=== PATIENT | female | born 1975 | race Two or more races ===

== ENCOUNTER 2025-01-03 06:37 | Inpatient (IN) | payer MEDICAID ==
[~2025-01-03] VITALS: Ht 165.1 cm; Wt 85.0 kg
[2025-01-03 07:21] LABS: Urine Bacteria None Seen /hpf (None Seen)
[2025-01-03 07:35] LABS: Urine Blood Negative /uL (Negative); Urine Clarity Clear (Clear); Urine Color Light-Yellow (Yellow); Urine Mucus FEW (None Seen); Urine Protein, UAD Negative (Negative); Urine Specific Gravity 1.021 (1.001-1.035); Urine Squamous Epithelial Cell FEW /hpf (<5); Urine Urobilinogen Normal (Negative); Urine WBC 2 /HPF (0-5)
[2025-01-03] MEDS: SODIUM CHLORIDE 0.9% 1,000 ML IV ONE (07:55)
[2025-01-03] MEDS: ONDANSETRON HCL 4 MG/2 ML VIAL IV ONE (08:00)
[2025-01-03 08:01] VITALS: PULSE 84; RESP 16; O2SAT 99
[2025-01-03] MEDS: MORPHINE SULFATE 4 MG/ML SYR/VIAL IV ONE (08:01)
[2025-01-03 08:16] LABS: Basophils # (auto) 0.1 10 ^3/uL (0-0.2); Basophils % (auto) 0.7 % (0.0-2.0); Eosinophils # (auto) 0.2 10 ^3/uL (0-0.8); Eosinophils % (auto) 2.8 % (0.0-7.0); Lymphocytes # (auto) 1.7 10 ^3/uL (0.4-5.4); Lymphocytes % (auto) 19.9 % (10.0-50.0); Mean Corpuscular Hemoglobin 25.1 pg (28.0-32.0); Mean Corpuscular Hgb Conc. 32.4 g/dL (32.0-36.0); Mean Corpuscular Volume 77.3 fL (80.0-100.0); Monocytes # (auto) 0.6 10 ^3/uL (0-1.3); Neutrophils # (auto) 5.9 10 ^3/uL (1.6-8.6); Neutrophils % (auto) 69.6 % (37.0-80.0); Platelet Count (auto) 247 10^3/uL (140-450); Red Blood Cells 4.79 10^6/uL (4.0-5.20); Red Cell Distribution Width 16.6 % (11.8-14.3); White Blood Cell 8.5 10^3/uL (4.4-10.8)
[2025-01-03 08:19] LABS: Chloride 106 mmol/L (98-107); Sodium 138 mmol/L (136-145)
[2025-01-03 08:20] LABS: Anion Gap 7 (5-15); Calcium 8.8 mg/dL (8.7-10.4); Carbon Dioxide 25 mmol/L (20-31)
[2025-01-03 08:25] LABS: Blood Urea Nitrogen 9 mg/dL (9-23); Glucose 105 mg/dL (74-106)
[2025-01-03] MEDS: IOHEXOL 300 MG/ML 100ML BOTTLE IJ ONE (08:49)
--- NOTE | 2025-01-03 10:04 | DVH ---
Exam: CT CT AB PEL WITH IV CON ONLY History: llq pain TECHNIQUE: A digital account financial manager image was obtained. During the uneventful, intravenous administration of c ontrast material, multislice data acquisition was obtained through the abdomen and pelvis. The data s et was subsequently reconstructed into axial images. Images were reviewed on a work station using a c ombination of axial and multiplanar using a variety of window levels and settings. 100 cc of Omnipaqu e 300 contrast was injected intravenously. All CT scans at this medical facility are performed using dose modulation techniques as appropriate t o a performed exam including the following:Automated exposure control was utilized; adjustment of the MA and/or KV according to patient size; and use of iterative reconstruction technique. Radiation Dose Information: CT Dose: CTDI volume is 14.37 mGy. Dose-length product is 829.66 mGy*cm Comparison: None FINDINGS: [Findings] Gallbladder surgically absent. Theliver, pancreas, kidneys, adrenal glands, and spleen appear within normal limits. There is no evidence of abdominal lymphadenopathy. There is no free fluid or free air. The stomach grossly appears unremarkable. The small and large bowel loops demonstrate normal caliber. The abdominal aorta and IVC appear within normal limits. The bladder is decompressed limiting evaluation. The uterus appears bulky and heterogeneous likely r elated to fibroid changes. There is a 3.7 cm cystic structure in the left pelvis likely an ovarian cy st. There is no evidence of a pelvic mass or lymphadenopathy. There is no free fluid collection. Lung bases are clear. There is no acute osseous abnormality. IMPRESSION: 1. There is no acute process in the abdomen and pelvis.. 2. The uterus appears bulky and heterogeneous likely related fibroid changes. 3. 3.7 cm cystic structure in the left pelvis likely an ovarian cyst. HS:Y
--- NOTE | 2025-01-03 12:17 | ED.PDOC ---
GI ASSESSMENT HPI Comments 49 year old female presents to the ED with a chief complaint of LLQ pain onset last night. Patient states she began experiencing LLQ pain last night, rates pain 10/10 and pain worsens with walking. Patient states she has been experiencing LLQ pain intermittently for the past few months, does not have PCP. Denies PMHx as well as nausea, vomiting, diarrhea, headache, chest pain, shortness of breath. No other symptoms or modifying factors present at this time. Chief Complaint: Abdominal Pain Time Seen by MD: 11:50 Reviewed Notes: Medications, Allergies Allergies: Coded Allergies: NO KNOWN ALLERGIES (Unverified , 01/03/25) Information Source: Patient Mode of Arrival: Ambulatory Timing: Days Duration: Since onset Prehospital treatment: None Quality: Aching Vomitus: None Severity: Moderate Recent: None Recent Hx of: None Pain Location: LLQ Modifying Factors: Nothing Associated sign and symptoms: Abdominal Pain Past Medical History PAST MEDICAL HISTORY: Denies Surgical History: Tubal Ligation CLIENT ADVISOR History: No Pertinent CLIENT ADVISOR History Family History Family History: Reviewed,noncontributory to illness, No family hx of Cancer, No family hx of DM, No family hx of Heart ja, No family hx of HTN, No family hx ofKidney ja, No family hx of Liver ja, No family hx of Lung ja, No family hx of Stroke Social History Smoker: Non-Smoker Alcohol: Denies ETOH Use Drugs: Denies Drug Use Lives In: Home Constitutional: denies: chills, diaphoresis, fatigue, fever, malaise, sweats, weakness, others EENTM: denies: blurred vision, double vision, ear bleeding, ear discharge, ear drainage, ear pain, ear ringing, eye pain, eye redness, hearing loss, mouth pain, mouth swelling, nasal discharge, nose bleeding, nose congestion, nose pain, photophobia, tearing, throat pain, throat swelling, voice changes, others Respiratory: denies: cough, hemoptysis, orthopnea, SOB at rest, shortness of breath, SOB with excertion, stridor, wheezing, others Cardiovascular: denies: chest pain, dizzy spells, diaphoresis, Dyspnea on exertion, edema, irregular heart beat, left arm pain, lightheadedness, palpitations, PND, syncope, others Gastrointestinal: reports: abdominal pain; denies: abdomen distended, blood streaked bowels, constipated, diarrhea, dysphagia, difficulty swallowing, hematemesis, melena, nausea, poor appetite, poor fluid intake, rectal bleeding, rectal pain, vomiting, others Genitourinary: denies: abnormal vagina bleeding, burning, dyspareunia, dysuria, flank pain, frequency, hematuria, incontinence, pain, , vagina discharge, urgency, others Neurological: denies: dizziness, fainting, headache, left sided numbness, left sided weakness, numbness, paresthesia, pre-existing deficit, right sided numbness, right sided weakness, seizure, speech problems, tingling, tremors, weakness, others Musculoskeletal: denies: back pain, gout, joint pain, joint swelling, muscle pain, muscle stiffness, neck pain, others Integumetry: denies: bruises, change in color, change in hair/nails, dryness, laceration, lesions, lumps, rash, wounds, others Allergic/Immunocompromised: denies: Difficulty Healing, Frequent Infections, Hives, Itching, others Hematologic/Lymphatic: denies: anemia, blood clots, easy bleeding, easy bruising, swollen glands, others Endocrine: denies: excessive hunger, excessive sweating, excessive thirst, excessive urination, flushing, intolerance to cold, intolerance to heat, unexplained weight gain, unexplained weight loss, others Psychiatric: denies: anxiety, bipolar disorder, depression, hopeless, panic disorder, schizophrenia, sleepless, suicidal, others All Other Systems: Reviewed and Negative Physical Exam General Appearance: Moderate Distress HEENT: Normal ENT Inspection, Pharynx Normal, TMs Normal Neck: Full Range of Motion, Non-Tender, Normal, Normal Inspection Respiratory: Chest Non-Tender, Lungs Clear, No Accessory Muscle Use, No Respiratory Distress, Normal Breath Sounds Cardiovascular: No Edema, No JVD, No Murmur, No Gallop, Normal Peripheral Pulses, Regular Rate/Rhythm Breast Exam: Deferred Gastrointestinal: Soft Genitalia: Deferred Pelvic: Deferred Rectal: Deferred Extremities: No calf tenderness, Normal capillary refill, Normal inspection, Normal range of motion, Non-tender, No pedal edema Musculoskeletal : Apperance: Normal Neurologic: Alert, oracle application consultant II-XII nml as Tested, No Motor Deficits, Normal Affect, Normal Mood, No Sensory Deficits Cerebellar Function: Normal Reflexes: Normal Skin: Dry, Normal Color, Warm Peripheral Pulses: 3+ Radial (R), 3+ Radial (L) Lymphatic: No Adenopathy Was a procedure done? Was a procedure done?: No GI differential Dx Differential Diagnosis: Constipation, Diverticular disease, Esophagitis, Gastritis/PUD, Gastroenteritis X-Ray, Labs, Meds, VS Vital Signs Date Time Temp Pulse Resp B/P (MAP) Pulse Ox O2 Delivery O2 Flow Rate FiO2 01/03/25 13:31 97.9 75 16 153/95 (114) 97 97.9 01/03/25 09:17 81 16 152/90 01/03/25 08:01 84 16 175/103 01/03/25 08:01 84 16 99 Room Air* 0 21 01/03/25 07:41 97.7 86 16 175/103 (127) 99 97.7 01/03/25 07:41 86 16 99 Room Air 01/03/25 06:56 98.7 89 16 177/101 (126) 100 Lab Test 01/03/25 07:33 01/03/25 06:50 Range/Units White Blood Count 8.5 4.4-10.8 10^3/uL Red Blood Count 4.79 4.0-5.20 10^6/uL Hemoglobin 12.0 L 12.2-16.2 g/dL Hematocrit 37.0 36.0-46.0 % Mean Corpuscular Volume 77.3 L 80.0-100.0 fL Mean Corpuscular Hemoglobin 25.1 L 28.0-32.0 pg Mean Corpuscular Hemoglobin Concent 32.4 32.0-36.0 g/dL Red Cell Distribution Width 16.6 H 11.8-14.3 % Platelet Count 247 140-450 10^3/uL Mean Platelet Volume 9.0 6.9-10.8 fL Neutrophils (%) (Auto) 69.6 37.0-80.0 % Lymphocytes (%) (Auto) 19.9 10.0-50.0 % Monocytes (%) (Auto) 7.0 0.0-12.0 % Eosinophils (%) (Auto) 2.8 0.0-7.0 % Basophils (%) (Auto) 0.7 0.0-2.0 % Neutrophils # (Auto) 5.9 1.6-8.6 10 ^3/uL Lymphocytes # (Auto) 1.7 0.4-5.4 10 ^3/uL Monocytes # (Auto) 0.6 0-1.3 10 ^3/uL Eosinophils # (Auto) 0.2 0-0.8 10 ^3/uL Basophils # (Auto) 0.1 0-0.2 10 ^3/uL Nucleated Red Blood Cells 0.0 % Sodium Level 138 136-145 mmol/L Potassium Level 4.0 3.5-5.1 mmol/L Chloride Level 106 98-107 mmol/L Carbon Dioxide Level 25 20-31 mmol/L Anion Gap 7 5-15 Blood Urea Nitrogen 9 9-23 mg/dL Creatinine 0.69 0.550-1.02 mg/dL Glomerular Filtration Rate Calc 108 >90 mL/min BUN/Creatinine Ratio 13.0 10.0-20.0 Serum Glucose 105 74-106 mg/dL Calcium Level 8.8 8.7-10.4 mg/dL Urine Color Light-yellow Yellow Urine Clarity Clear Clear Urine pH 6.0 5.0-9.0 Urine Specific [place] 1.021 1.001-1.035 Urine Protein Negative Negative Urine Ketones Negative Negative Urine Blood Negative Negative /uL Urine Nitrite Negative Negative Urine Bilirubin Negative Negative Urine Urobilinogen Normal Negative mg/dL Urine Leukocyte Esterase Negative Negative /uL Urine RBC 1 0 - 4 /hpf Urine Microscopic WBC 2 0-5 /HPF Urine Squamous Epithelial Cells Few <5 /hpf Urine Bacteria None seen None Seen /hpf Urine Mucus Few None Seen Urine Glucose Normal Normal mg/dL Current Medications Medications (Trade) Dose Ordered Sig/Yary Route Start Time Stop Time Status Last Admin Sodium Chloride 1,000 ml @ 1,000 mls/hr Q1H ONCE IV 01/03/25 07:00 01/03/25 07:59 DC 01/03/25 07:55 Ondansetron HCl (Zofran) 4 mg ONCE ONCE IV 01/03/25 07:00 01/03/25 07:01 DC 01/03/25 08:00 Morphine Sulfate 4 mg ONCE ONCE IV 01/03/25 07:00 01/03/25 07:01 DC 01/03/25 08:[address] [address] Ph: [phone] DIAGNOSTIC IMAGING Diagnostic Imaging Report : [id number] Signed PATIENT: ROBBIE CONDE ACCT: [id number] UNIT: [id number] : 1975 LOC: ER ROOM / BED: / AGE / SEX: 49 / F ADM STATUS: REG ER SERVICE 0658 ORDERING PHYSICIAN: THA CHRISTIANSON MD PROCEDURE(s): ABPLIV - CT AB PEL WITH IV CON ONLY REASON: llq pain ORDER NUMBER(s): [id number], ACCESSION NUMBER(s): [id number] Exam: CT CT AB PEL WITH IV CON ONLY History: llq pain TECHNIQUE: A digital gas station supervisor image was obtained. During the uneventful, intraven ous administration of contrast material, multislice data acquisition was obtained through the abdomen and pelvis. The data set was subsequently reconstructed into axial images. Images were reviewed on a work station using a combination of axial and multiplanar using a variety of window levels and settings. 100 cc of Omnipaque 300 contrast was injected intravenously. All CT scans at this medical facility are performed using dose modulation techniques as appropriate to a performed exam including the following:Automated exposure control was utilized; adjustment of the MA and/or KV according to patient size; and use of iterative reconstruction technique. Radiation Dose Information: CT Dose: CTDI volume is 14.37 mGy. Dose-length product is 829.66 mGy*cm Comparison: None FINDINGS: [Findings] Gallbladder surgically absent. Theliver, pancreas, kidneys, adrenal glands, and spleen appear within normal limits. There is no evidence of abdominal lymphadenopathy. There is no free fluid or free air. The stomach grossly appears unremarkable. The small and large bowel loops demonstrate normal caliber. The abdominal aorta and IVC appear within normal limits. The bladder is decompressed limiting evaluation. The uterus appears bulky and heterogeneous likely related to fibroid changes. There is a 3.7 cm cystic structure in the left pelvis likely an ovarian cyst. There is no evidence of a pelvic mass or lymphadenopathy. There is no free fluid collection. Lung bases are clear. There is no acute osseous abnormality. IMPRESSION: 1. There is no acute process in the abdomen and pelvis.. 2. The uterus appears bulky and heterogeneous likely related fibroid changes. 3. 3.7 cm cystic structure in the left pelvis likely an ovarian cyst. HS:Y ATED BY: ALDIAR CURRY MD DICTATED DATE/TIME: 01/03/25 1002 SIGNED BY: ALDAIR CURRY MD SIGNED DATE/TIME: 01/03/25 1002 CC: Patient alert. Complaining of abdominal pain. Vitals stable. Answering all questions. She has been having these symptoms for many months. CT of the abdomen reviewed does not show any acute changes. Possibly ovarian cyst. Continues to have abdominal pain. Establish intravenous access. Was given fluids pain Was given pain medication. Explained to the patient. Continue monitoring. Time of 1ST Reevaluation: 12:20 Reevaluation 1ST: Unchanged Patient Education/Counseling: Diagnosis, Treatment, Prognosis Family Education/Counseling: No Family Present Additional Information The following tests were ordered, and results were reviewed by me: CBC, BMP, UA, CT AB PEL WITH IV CON I reviewed and agreed with the following test results read by other providers: CT AB PEL WITH IV CON I discussed treatment and results with medical personnel and patient Departure 1 Departure Time of Disposition: 16:56 Impression: Primary Impression: Nonspecific abdominal pain Additional Impression: Ovarian cyst Qualified Codes: N83.209 - Unspecified ovarian cyst, unspecified side Disposition: ADMITTED INPATIENT Admit to: Med Surg Condition: Guarded Critical Care Note Critical Care Time?: No Stability Stability form required: No Heart Score Heart Score: Heart Score Response (Comments) Value History N/A 0 EKG N/A 0 Age N/A 0 Risk Factors N/A 0 Troponin N/A 0 Total 0 I personally scribed for SHOLA YOO MD ([email or web address]) on 01/03/25 at 12:17. Electronically submitted by Amanda Gross ([email or web address]). I personally scribed for SHOLA YOO MD ([email or web address]) on 01/03/25 at 12:20. Electronically submitted by Amanda Gross ([email or web address]). I personally scribed for SHOLA YOO MD ([email or web address]) on 01/03/25 at 13:09. Electronically submitted by Amanda Gross ([email or web address]). SHOLA YOO MD Jan 03, 2025 12:17
[2025-01-03] MEDS ORDERED: HYDROcodone-ACET 5/325MG TAB PO PRN (14:30)
[2025-01-03] MEDS ORDERED: DOCUSATE SOD 100 MG CAP PO PRN (14:30)
[2025-01-03] MEDS ORDERED: ONDANSETRON HCL 4 MG/2 ML VIAL IV PRN (14:30)
[2025-01-03] MEDS ORDERED: ACETAMINOPHEN 325 MG TAB PO PRN (14:30)
--- NOTE | 2025-01-03 15:59 | DVHHP2 ---
History of Present Illness Reason for Visit: Acute abdominal pain History of Present Illness The patient is a 49-year-old female who denies past medical history presented to [facility] ED with complaint of left lower quadrant abdominal pain. Patient reports symptoms progressively get worse with nausea, rating pain 10/10 numeric scale, intermittent abdominal pain for the past few months, getting worse today that prompted this visit. Patient was seen and evaluated in the ED, laboratory data shows WBC 8.5, platelets 247, sodium 138, potassium 4.0, BUN nine, creatinine 0.69, GFR 108, glucose 105. Abdomen/pelvis CT revealing 3.7 cm cystic structure in the left pelvis likely an ovarian cysts, no acute process in the abdomen or pelvis. Please see medication orders section in the computer. On my assessment, patient denied chest pain, no headache, no dizziness, no shortness a breath, no nausea, no vomiting, no fever, no chills. No other mo difying factor or other associated signs and symptoms noted. The patient was admitted to the hospital for further evaluation and medical management. Past Medical History Denies past medical history Past Surgical History Tubal Ligation Family History Reviewed, noncontributory to the management of this case. Past Social History The patient lives at home, denies smoking, alcohol or illicit drugs abuse. Review of Systems Constitutional: No: Fever, Chills, Sweats, Weakness, Malaise, Other Eyes: No: Pain, Vision change, Conjunctivae inflammation, Eyelid inflammation, Other, Redness ENT: No: Ear pain, Ear discharge, Nose pain, Nose discharge, Nose congestion, Mouth pain, Mouth swelling, Throat pain, Throat swelling, Other Respiratory: No: Cough, Dry, Shortness of breath, SOB with excertion, Wheezing, Hemoptysis, Pleuritic Pain, Sputum, Wheezing, Other Cardiovascular: No: Chest Pain, Palpitations, Orthopnea, Paroxysmal Noc. D yspnea, Edema, Lt Headedness, Other Gastrointestinal: Nausea, Abdominal Pain; No: Vomiting, Diarrhea, Constipation, Melena, Hematochezia, Other Genitourinary: No Dysuria, No Frequency, No Incontinence, No Hematuria, No Retention, No Other Musculoskeletal: No: other, neck pain, shoulder pain, arm pain, back pain, hand pain, leg pain, foot pain Skin: No: Rash, Lesions, Jaundice, Bruising, Other Neurological: No: Weakness, Numbness, Incoordination, Change in speech, Confusion, Seizures, Other Allergies: Coded Allergies: NO KNOWN ALLERGIES (Unverified , 01/03/25) Medications Current Medications Medications Dose Ordered Sig/Yary Route Start Time Stop Time Status Last Admin Dose Admin Sodium Chloride 1,000 ml @ 60 mls/hr [id number] IV 01/03/25 14:30 Acetaminophen/ Hydrocodone Bitart 1 tab Q4HP PRN PO 01/03/25 14:30 Ondansetron HCl 4 mg Q4HP PRN IV 01/03/25 14:30 Docusate Sodium 100 mg BIDPRN PRN PO 01/03/25 14:30 Acetaminophen 650 mg Q6HP PRN PO 01/03/25 14:30 Morphine Sulfate 2 mg Q4HPRN PRN IV 01/03/25 14:30 Pantoprazole Sodium 40 mg DAILY IV 01/04/25 10:00 Exam Vital Signs Vital Signs Date Time Temp Pulse Resp B/P (MAP) Pulse Ox O2 Delivery O2 Flow Rate FiO2 01/03/25 13:31 97.9 75 16 153/95 (114) 97 97.9 01/03/25 08:01 Room Air* 0 21 General Appearance: Alert, Oriented X3, Cooperative, No acute distress HEENT: Atraumatic, PERRLA, EOMI, Mucous membr. moist/pink Respiratory: Clear to auscultation, Normal air movement Cardiovascular: Regular rate, Normal S1, Normal S2, No murmurs Abdominal: Normal bowel sounds, Soft, No hepatospenomegaly, No masses, Other (Reports tenderness) Extremities: No clubbing, No cyanosis, No edema, Normal pulses, No tenderness/swelling Skin: No rashes, No breakdown, No significant lesion Neuro: Normal gait, Normal speech, Strength at 5/5 X4 ext, Normal tone, Sensation intact, Cranial nerves 3-12 NL, Reflexes 2+ Psych/Mental Status: Mental status NL, Mood NL Labs/Xrays Labs Test 01/03/25 07:33 01/03/25 06:50 Range/Units White Blood Count 8.5 4.4-10.8 10^3/uL Red Blood Count 4.79 4.0-5.20 10^6/uL Hemoglobin 12.0 L 12.2-16.2 g/dL Hematocrit 37.0 36.0-46.0 % Mean Corpuscular Volume 77.3 L 80.0-100.0 fL Mean Corpuscular Hemoglobin 25.1 L 28.0-32.0 pg Mean Corpuscular Hemoglobin Concent 32.4 32.0-36.0 g/dL Red Cell Distribution Width 16.6 H 11.8-14.3 % Platelet Count 247 140-450 10^3/uL Mean Platelet Volume 9.0 6.9-10.8 fL Neutrophils (%) (Auto) 69.6 37.0-80.0 % Lymphocytes (%) (Auto) 19.9 10.0-50.0 % Monocytes (%) (Auto) 7.0 0.0-12.0 % Eosinophils (%) (Auto) 2.8 0.0-7.0 % Basophils (%) (Auto) 0.7 0.0-2.0 % Neutrophils # (Auto) 5.9 1.6-8.6 10 ^3/uL Lymphocytes # (Auto) 1.7 0.4-5.4 10 ^3/uL Monocytes # (Auto) 0.6 0-1.3 10 ^3/uL Eosinophils # (Auto) 0.2 0-0.8 10 ^3/uL Basophils # (Auto) 0.1 0-0.2 10 ^3/uL Nucleated Red Blood Cells 0.0 % Sodium Level 138 136-145 mmol/L Potassium Level 4.0 3.5-5.1 mmol/L Chloride Level 106 98-107 mmol/L Carbon Dioxide Level 25 20-31 mmol/L Anion Gap 7 5-15 Blood Urea Nitrogen 9 9-23 mg/dL Creatinine 0.69 0.550-1.02 mg/dL Glomerular Filtration Rate Calc 108 >90 mL/min BUN/Creatinine Ratio 13.0 10.0-20.0 Serum Glucose 105 74-106 mg/dL Calcium Level 8.8 8.7-10.4 mg/dL Urine Color Light-yellow Yellow Urine Clarity Clear Clear Urine pH 6.0 5.0-9.0 Urine Specific [place] 1.021 1.001-1.035 Urine Protein Negative Negative Urine Ketones Negative Negative Urine Blood Negative Negative /uL Urine Nitrite Negative Negative Urine Bilirubin Negative Negative Urine Urobilinogen Normal Negative mg/dL Urine Leukocyte Esterase Negative Negative /uL Urine RBC 1 0 - 4 /hpf Urine Microscopic WBC 2 0-5 /HPF Urine Squamous Epithelial Cells Few <5 /hpf Urine Bacteria None seen None Seen /hpf Urine Mucus Few None Seen Urine Glucose Normal Normal mg/dL PATIENT: ROBBIE CONDE ACCT: [id number] UNIT: [id number] : 1975 LOC: ER ROOM / BED: / AGE / SEX: 49 / F ADM STATUS: REG ER SERVICE 0658 ORDERING PHYSICIAN: THA CHRISTIANSON MD PROCEDURE(s): ABPLIV - CT AB PEL WITH IV CON ONLY REASON: llq pain ORDER NUMBER(s): [id number], ACCESSION NUMBER(s): [id number] Exam: CT CT AB PEL WITH IV CON ONLY History: llq pain TECHNIQUE: A digital school services officer image was obtained. During the uneventful, intravenous administration of contrast material, multislice data acquisition was obtained through the abdomen and pelvis. The data set was subsequently reconstr ucted into axial images. Images were reviewed on a work station using a combination of axial and multiplanar using a variety of window levels and settings. 100 cc of Omnipaque 300 contrast was injected intravenously. All CT scans at this medical facility are performed using dose modulation techniques as appropriate to a performed exam including the following:Automated exposure control was utilized; adjustment of the MA and/or KV according to patient size; and use of iterative reconstruction technique. Radiation Dose Information: CT Dose: CTDI volume is 14.37 mGy. Dose-length product is 829.66 mGy*cm Comparison: None FINDINGS: [Findings] Gallbladder surgically absent. Theliver, pancreas, kidneys, adrenal glands, and spleen appear within normal limits. There is no evidence of abdominal lymphadenopathy. There is no free fluid or free air. The stomach grossly appears unremarkable. The small and large bowel loops demonstrate normal caliber. The abdominal aorta and IVC appear within normal limits. The bladder is decompressed limiting evaluation. The uterus appears bulky and heterogeneous likely related to fibroid changes. There is a 3.7 cm cystic structure in the left pelvis likely an ovarian cyst. There is no evidence of a pelvic mass or lymphadenopathy. There is no free fluid collection. Lung bases are clear. There is no acute osseous abnormality. IMPRESSION: 1. There is no acute process in the abdomen and pelvis.. 2. The uterus appears bulky and heterogeneous likely related fibroid changes. 3. 3.7 cm cystic structure in the left pelvis likely an ovarian cyst. Assessment/Plan Assessment/Plan Nonspecific abdominal pain Ovarian cyst Unspecified ovarian cyst, unspecified side Plan 1. Admit to med surge unit 2. Breathing treatment 3. Pain control management 4. Management of fluids and electrolytes 5. Consultation for hospitalist 6. Diagnostic tests abdomen/pelvis CT 7. DVT prophylaxis-on SCDs 8. Repeat labs CBC, CMP in a.m. 9. Continue with current medical management 10. Treatment plan discussed with patient and RN. Patient verbalized understanding. Plan discussed with: Patient, Other (RN) My Orders Orders - TIM JERONIMO DNP Procedure Category Date Status Time Allergies ALEXIA 01/03/25 In Process 14:28 Code Status CODE 01/03/25 Transmitted 14:28 Sodium Chloride 0.9% PHA 01/03/25 In Process 14:30 Oxygen Per Hour RT 01/03/25 Transmitted 14:28 Hydrocodone-Acet PHA 01/03/25 In Process 5/325mg Tab ([place] 14:30 Ondansetron Hcl PHA 01/03/25 In Process (Zofran) 14:30 Docusate Sodium PHA 01/03/25 In Process Capsule (Colace 14:30 Complete Blood Count LAB 01/04/25 Verified 04:00 Comprehensive LAB 01/04/25 Verified Metabolic Panel 04:00 Condition: Serious ALEXIA 01/03/25 In Process 14:28 Acetaminophen Tablet PHA 01/03/25 In Process (Tylenol Tablet) 14:30 Clear Liq Diet DIET 01/03/25 Transmitted Dinner Bedrest With Bathroom ALEXIA 01/03/25 In Process Privileg 14:28 Morphine Sulfate PHA 01/03/25 In Process Injection 14:30 Sequential ALEXIA 01/03/25 In Process Compression Device Pantoprazole PHA 01/04/25 In Process (Protonix) 10:00 Admit ADMIT 01/03/25 Verified 15:58 Nitroglycerin PHA 01/03/25 Verified Sublingual (Ntrostat 16:00 Morphine Sulfate PHA 01/03/25 Verified Injection 16:00 Notify Md Of Changes ALEXIA 01/03/25 Verified From Base 15:58 Emergency Dysrhythmia ALEXIA 01/03/25 Verified Protocol 15:58 Oxygen By Nasal RT 01/03/25 Verified Cannula 15:58 Problem List: (1) Nonspecific abdominal pain (2) Ovarian cyst (3) Unspecified ovarian cyst, unspecified side Date of Service: Jan 03, 2025 Billing Provider: TIM JERONIMO DNP Common Visit Codes: 22383-[id number] INP/OBS CARE (HIGH) TIM JERONIMO DNP Jan 03, 2025 15:59
[2025-01-03] MEDS ORDERED: MORPHINE SULFATE INJ 2 MG/ml SYRG IV PRN (16:00)
[2025-01-03] MEDS ORDERED: NITROGLYCERIN 0.4 MG SL TAB SL PRN (16:00)
[2025-01-03 17:59] VITALS: O2SAT 98
[2025-01-03 18:14] VITALS: BP 170/91; PULSE 76; RESP 18; TEMP 98; O2SAT 98
[2025-01-03] MEDS: SODIUM CHLORIDE 0.9% 1,000 ML IV SCH (19:57)
[2025-01-03 20:00] VITALS: BP 151/86; PULSE 81; RESP 20; TEMP 99.4; O2SAT 98
[2025-01-03] MEDS: MORPHINE SULFATE INJ 2 MG/ml SYRG IV PRN (20:27)
[2025-01-03 21:05] VITALS: BP 152/85; PULSE 78; RESP 20; TEMP 98.9; O2SAT 97
[2025-01-03 21:09] VITALS: PULSE 70; RESP 17; O2SAT 100
[2025-01-04] VITALS (8 sets, daily range): BP systolic 144–159; BP diastolic 77–96; PULSE 74–88; RESP 17; TEMP 97.8–99.1; O2SAT 94–98
[2025-01-04 07:29] LABS: Anion Gap 10 (5-15); Calcium 8.8 mg/dL (8.7-10.4); Carbon Dioxide 23 mmol/L (20-31); Potassium 3.7 mmol/L (3.5-5.1); Sodium 141 mmol/L (136-145)
[2025-01-04 07:30] LABS: Albumin 3.6 g/dL (3.2-4.8); BUN/Creatinine Ratio 10.7 (10.0-20.0)
[2025-01-04 07:32] LABS: Total Protein 6.1 g/dL (5.7-8.2)
[2025-01-04 07:41] LABS: Alanine Aminotransferase 1671 U/L (7-40); Alkaline Phosphatase 268 U/L (46-116); Aspartate Aminotransferase > 1000 U/L (13-40); Bilirubin, Total 2.2 mg/dL (0.2-1.0); Blood Urea Nitrogen 6 mg/dL (9-23); Chloride 108 mmol/L (98-107); Glucose 107 mg/dL (74-106)
[2025-01-04 07:42] LABS: Basophils # (auto) 0 10 ^3/uL (0-0.2); Basophils % (auto) 0.5 % (0.0-2.0); Hemoglobin 11.4 g/dL (12.2-16.2); Lymphocytes # (auto) 0.6 10 ^3/uL (0.4-5.4); Mean Corpuscular Hemoglobin 25.2 pg (28.0-32.0); Monocytes # (auto) 0.4 10 ^3/uL (0-1.3); Platelet Count (auto) 220 10^3/uL (140-450)
[2025-01-04 07:44] LABS: Eosinophils # (auto) 0.1 10 ^3/uL (0-0.8); Eosinophils % (auto) 2.4 % (0.0-7.0); Hematocrit 34.9 % (36.0-46.0); Lymphocytes % (auto) 10.9 % (10.0-50.0); Mean Corpuscular Hgb Conc. 32.7 g/dL (32.0-36.0); Mean Corpuscular Volume 77.1 fL (80.0-100.0); Monocytes % (auto) 7.3 % (0.0-12.0); Neutrophils # (auto) 4.5 10 ^3/uL (1.6-8.6); Neutrophils % (auto) 78.9 % (37.0-80.0); Red Blood Cells 4.52 10^6/uL (4.0-5.20); Red Cell Distribution Width 16.3 % (11.8-14.3); White Blood Cell 5.7 10^3/uL (4.4-10.8)
[2025-01-04] MEDS: PANTOPRAZOLE 40 MG/10 ML VIAL INJ IV SCH (10:35)
--- NOTE | 2025-01-04 14:58 | DVHPN2 ---
Reviewed: Care Plan, H&P, Labs, Medications, Previous Orders, Radiology Changes from previous H/P or p: No Changes Eyes: No Pain, No Vision change, No Conjunctivae inflammation, No Eyelid inflammation, No Other, No Redness ENT: No Ear pain, No Ear discharge, No Nose pain, No Nose discharge, No Nose congestion, No Mouth pain, No Mouth swelling, No Throat pain, No Throat swelling, No Other Cardiovascular: No Chest Pain, No Palpitations, No Orthopnea, No Paroxysmal Noc. Dyspnea, No Edema, No Lt Headedness, No Other Respiratory: No Cough, No Dry, No Shortness of breath, No SOB with excertion, No Wheezing, No Hemoptysis, No Pleuritic Pain, No Sputum, No Other Gastrointestinal: Nausea; No Vomiting; Abdominal Pain; No Diarrhea, No Constipation, No Melena, No Hematochezia, No Other Genitourinary: No Dysuria, No Frequency, No Incontinence, No Hematuria, No Retention, No Other Musculoskeletal: No other, No neck pain, No shoulder pain, No arm pain, No back pain, No hand pain, No leg pain, No foot pain Skin: No Rash, No Lesions, No Jaundice, No Bruising, No Other Objective Vitals Vital Signs Date Time Temp Pulse Resp B/P (MAP) Pulse Ox O2 Delivery O2 Flow Rate FiO2 01/04/25 12:31 98.3 80 17 158/85 (109) 94 98.3 01/03/25 21:09 Room Air* 0 21 Intake/Output Intake and Output 01/04/25 07:00 Intake Total 1125 ml Balance 1125 ml Intake Oral 125 ml IV Total 1000 ml # Voids 1 Medications Current Medications Medications Dose Ordered Sig/Yary Route Start Time Stop Time Status Last Admin Dose Admin Sodium Chloride 1,000 ml @ 60 mls/hr [id number] IV 01/03/25 14:30 01/04/25 10:15 60 MLS/HR Acetaminophen/ Hydrocodone Bitart 1 tab Q4HP PRN PO 01/03/25 14:30 Ondansetron HCl 4 mg Q4HP PRN IV 01/03/25 14:30 Docusate Sodium 100 mg BIDPRN PRN PO 01/03/25 14:30 Acetaminophen 650 mg Q6HP PRN PO 01/03/25 14:30 Morphine Sulfate 2 mg Q4HPRN PRN IV 01/03/25 14:30 01/04/25 05:56 2 MG Pantoprazole Sodium 40 mg DAILY IV 01/04/25 10:00 01/04/25 10:35 40 MG Nitroglycerin 0.4 mg Q5MINP PRN SL 01/03/25 16:00 Morphine Sulfate 2 mg Q30M PRN IV 01/03/25 16:00 Laboratory Results Laboratory Tests 01/04/25 05:21 Chemistry Test 01/04/25 05:21 Albumin 3.6 g/dL (3.2-4.8) Calcium Level 8.8 mg/dL (8.7-10.4) Total Protein 6.1 g/dL (5.7-8.2) LFT Test 01/04/25 05:21 Alanine Aminotransferase (ALT) 1671 U/L (7-40) H Alkaline Phosphatase 268 U/L (46-116) H Aspartate Amino Transferase (AST) > 1000 U/L (13-40) H Total Bilirubin 2.2 mg/dL (0.2-1.0) H Urinalysis Test 01/03/25 06:50 Urine Color Light-yellow (Yellow) Urine Clarity Clear (Clear) Urine pH 6.0 (5.0-9.0) Urine Specific [place] 1.021 (1.001-1.035) Urine Protein Negative (Negative) Urine Ketones Negative (Negative) Urine Blood Negative /uL (Negative) Urine Nitrite Negative (Negative) Urine Bilirubin Negative (Negative) Urine Urobilinogen Normal mg/dL (Negative) Urine Leukocyte Esterase Negative /uL (Negative) Urine RBC 1 /hpf (0 - 4) Urine Microscopic WBC 2 /HPF (0-5) Urine Squamous Epithelial Cells Few /hpf (<5) Urine Bacteria None seen /hpf (None Seen) Urine Mucus Few (None Seen) Urine Glucose Normal mg/dL (Normal) Labs and/or images reviewed: Labs reviewed by me, Image(s) reviewed by me Assessment/Plan Assessment/Plan Nonspecific abdominal pain 3.7 cm left Ovarian cyst, consult for OBGYN Dr. Zhao Uterine fibroids Plan discussed with: Patient Date of Service: Jan 04, 2025 Billing Provider: EMILY LY MD Common Visit Codes: [id number] INP/OBS CARE(HIGH) EMILY LY MD Jan 04, 2025 14:58
--- NOTE | 2025-01-04 16:11 | DVHINCON2 ---
Date of service: Jan 04, [address] Konrad Medina Reason for Consultation Left lower quadrant pain History of Present Illness 49 year old female presents to the ED with a chief complaint of LLQ pain onset last night. Patient states she began experiencing LLQ pain last night, rates pain 10/10 and pain worsens with walking. Patient states she has been experiencing LLQ pain intermittently for the past few months, worse for the last two three days. Denies PMHx as well as nausea, vomiting, diarrhea, headache, chest pain, shortness of breath. No other symptoms or modifying factors present at this time. Patient does see a Yakut-speaking physician on his. Patient also noted some change in the color of her urine Abdominal pelvic CT scan showed uterine fibroid and a left ovarian cyst othe rwise no acute abdominal process Laboratory tests this morning significant for moderate elevation in her transaminases and her liver enzymes, UA was negative Past Medical History Negative Past Surgical History Tubal ligation Allergies: Coded Allergies: NO KNOWN ALLERGIES (Unverified , 01/03/25) Current Medications Current Medications Medications (Trade) Dose Ordered Sig/Yary Route PRN Reason Start Time Stop Time Status Last Admin Pantoprazole Sodium (Protonix) 40 mg DAILY IV 01/04/25 10:00 01/04/25 10:35 Vital Signs Vital Signs Date Time Temp Pulse Resp B/P (MAP) Pulse Ox O2 Delivery O2 Flow Rate FiO2 01/04/25 12:31 98.3 80 17 158/85 (109) 94 98.3 01/04/25 08:00 Room Air* 0 21 Physical Exam General Appearance: Alert, Oriented X3, Cooperative, No acute distress; minimal scleral icterus HEENT: Atraumatic, PERRLA, EOMI, Mucous membr. moist/pink Respiratory: Clear to auscultation, Normal air movement Cardiovascular: Regular rate, Normal S1, Normal S2, No murmurs Abdominal: Normal bowel sounds, Soft, No hepatospenomegaly, No masses, left lower quadrant tenderness and suprapubic tenderness with guarding but no rebound Extremities: No clubbing, No cyanosis, No edema, Normal pulses, No tenderness/swelling Skin: No rashes, No breakdown, No significant lesion Neuro: Normal gait, Normal speech, Strength at 5/5 X4 ext, Normal tone, Sensation intact, Cranial nerves 3-12 NL, Reflexes 2+ Psych/Mental Status: Mental status NL, Mood NL Labs/Diagnostic Data Labs Test 01/04/25 05:21 01/03/25 06:50 Range/Units White Blood Count 5.7 # 4.4-10.8 10^3/uL Red Blood Count 4.52 4.0-5.20 10^6/uL Hemoglobin 11.4 L 12.2-16.2 g/dL Hematocrit 34.9 L 36.0-46.0 % Mean Corpuscular Volume 77.1 L 80.0-100.0 fL Mean Corpuscular Hemoglobin 25.2 L 28.0-32.0 pg Mean Corpuscular Hemoglobin Concent 32.7 32.0-36.0 g/dL Red Cell Distribution Width 16.3 H 11.8-14.3 % Platelet Count 220 140-450 10^3/uL Mean Platelet Volume 9.3 6.9-10.8 fL Neutrophils (%) (Auto) 78.9 37.0-80.0 % Lymphocytes (%) (Auto) 10.9 10.0-50.0 % Monocytes (%) (Auto) 7.3 0.0-12.0 % Eosinophils (%) (Auto) 2.4 0.0-7.0 % Basophils (%) (Auto) 0.5 0.0-2.0 % Neutrophils # (Auto) 4.5 1.6-8.6 10 ^3/uL Lymphocytes # (Auto) 0.6 0.4-5.4 10 ^3/uL Monocytes # (Auto) 0.4 0-1.3 10 ^3/uL Eosinophils # (Auto) 0.1 0-0.8 10 ^3/uL Basophils # (Auto) 0 0-0.2 10 ^3/uL Nucleated Red Blood Cells 0.0 % Sodium Level 141 136-145 mmol/L Potassium Level 3.7 3.5-5.1 mmol/L Chloride Level 108 H 98-107 mmol/L Carbon Dioxide Level 23 20-31 mmol/L Anion Gap 10 5-15 Blood Urea Nitrogen 6 L 9-23 mg/dL Creatinine 0.56 0.550-1.02 mg/dL Glomerular Filtration Rate Calc 113 >90 mL/min BUN/Creatinine Ratio 10.7 10.0-20.0 Serum Glucose 107 H 74-106 mg/dL Calcium Level 8.8 8.7-10.4 mg/dL Total Bilirubin 2.2 H 0.2-1.0 mg/dL Aspartate Amino Transferase (AST) > 1000 H 13-40 U/L Alanine Aminotransferase (ALT) 1671 H 7-40 U/L Alkaline Phosphatase 268 H 46-116 U/L Total Protein 6.1 5.7-8.2 g/dL Albumin 3.6 3.2-4.8 g/dL Urine Color Light-yellow Yellow Urine Clarity Clear Clear Urine pH 6.0 5.0-9.0 Urine Specific [place] 1.021 1.001-1.035 Urine Protein Negative Negative Urine Ketones Negative Negative Urine Blood Negative Negative /uL Urine Nitrite Negative Negative Urine Bilirubin Negative Negative Urine Urobilinogen Normal Negative mg/dL Urine Leukocyte Esterase Negative Negative /uL Urine RBC 1 0 - 4 /hpf Urine Microscopic WBC 2 0-5 /HPF Urine Squamous Epithelial Cells Few <5 /hpf Urine Bacteria None seen None Seen /hpf Urine Mucus Few None Seen Urine Glucose Normal Normal mg/dL CT SCAN ABD PELVIS IMPRESSION: 1. There is no acute process in the abdomen and pelvis.. 2. The uterus appears bulky and heterogeneous likely related fibroid changes. 3. 3.7 cm cystic structure in the left pelvis likely an ovarian cyst. Problems(with codes): (1) Elevated transaminase level (2) Elevated bilirubin (3) Uterine fibroid (4) Left lower quadrant abdominal pain (5) Unspecified ovarian cyst, unspecified side (6) Nonspecific abdominal pain Plan/Recommendation Plan Patient is currently being managed conservatively, her UA is negative and CT is negative except for uterine fibroids and cyst Patient has moderate elevation in liver enzymes is concerning, check Tylenol level and if elevated patient may need Mucomyst treatment Check hepatitis panel, DARRYL, serum ferritin, acute hepatitis panel, PT INR, HSV IgM and EBV IgM Right upper quadrant ultrasound possibly followed by MRCP I will follow this patient closely Elective colonoscopy has been advised once medically stabilized Patient is awaiting OBGYN consult Plan discussed with: Patient, Other (Dr Huynh) GIULIA RODNEY MD Jan 04, 2025 16:11
[2025-01-04 20:34] LABS: Albumin 3.9 g/dL (3.2-4.8)
[2025-01-04 20:35] LABS: Total Protein 6.3 g/dL (5.7-8.2)
--- NOTE | 2025-01-04 20:44 | DVH ---
INDICATION: elevated liver tests TECHNIQUE: Multiple real-time sonographic images of the abdomen were obtained. COMPARISON: None FINDINGS: Hepatic parenchyma suggests steatosis. The liver measures 5.78 cm. No intrahepatic biliary ductal dilatation is noted. Gallbladder has been surgically removed. The common duct measures 0.83 cm and is unremarkable. No p ericholecystic fluid is noted. The right kidney measures 9.58 cm. No hydronephrosis. The pancreas is not well visualized due to obscuration from bowel gas. IMPRESSION: 1. Liver measures 15.8 cm with changes suggesting steatosis. 2. Gallbladder has been surgically removed. 3. Right kidney measures 9.58 cm and appears normal
[2025-01-04 20:47] LABS: Bilirubin, Direct 1.2 mg/dL (<0.3); Bilirubin, Total 2.2 mg/dL (0.2-1.0)
[2025-01-05 01:00] VITALS: BP 141/85; PULSE 89; RESP 18; TEMP 98.6; O2SAT 97
[2025-01-05 05:00] VITALS: BP 151/94; PULSE 86; RESP 18; TEMP 98.7; O2SAT 97
[2025-01-05 06:47] LABS: INR 1.19 (0.9-1.15); Prothrombin Time 12.4 sec (9.3-11.8)
[2025-01-05 06:48] LABS: Basophils # (auto) 0 10 ^3/uL (0-0.2); Basophils % (auto) 0.6 % (0.0-2.0); Eosinophils # (auto) 0.4 10 ^3/uL (0-0.8); Monocytes # (auto) 0.5 10 ^3/uL (0-1.3)
[2025-01-05 06:49] LABS: Albumin 3.7 g/dL (3.2-4.8); Anion Gap 10 (5-15); BUN/Creatinine Ratio 11.7 (10.0-20.0); Bilirubin, Total 1.1 mg/dL (0.2-1.0); Calcium 8.9 mg/dL (8.7-10.4); Carbon Dioxide 23 mmol/L (20-31); Chloride 107 mmol/L (98-107); Glucose 98 mg/dL (74-106); Potassium 3.8 mmol/L (3.5-5.1); Sodium 140 mmol/L (136-145); Total Protein 6.3 g/dL (5.7-8.2)
[2025-01-05 06:51] LABS: Eosinophils % (auto) 5.9 % (0.0-7.0); Hemoglobin 11.7 g/dL (12.2-16.2); Lymphocytes % (auto) 14.2 % (10.0-50.0); Mean Corpuscular Hemoglobin 25.4 pg (28.0-32.0); Mean Corpuscular Hgb Conc. 33.4 g/dL (32.0-36.0); Mean Corpuscular Volume 76.3 fL (80.0-100.0); Monocytes % (auto) 7.1 % (0.0-12.0); Neutrophils % (auto) 72.2 % (37.0-80.0); Platelet Count (auto) 232 10^3/uL (140-450); Red Blood Cells 4.59 10^6/uL (4.0-5.20); Red Cell Distribution Width 16.3 % (11.8-14.3)
[2025-01-05 06:56] LABS: Alkaline Phosphatase 305 U/L (46-116); Aspartate Aminotransferase 455 U/L (13-40); Blood Urea Nitrogen 7 mg/dL (9-23)
[2025-01-05 07:06] LABS: Alanine Aminotransferase 1155 U/L (7-40)
[2025-01-05 08:42] VITALS: BP 140/74; PULSE 73; RESP 18; TEMP 98.1; O2SAT 97
[2025-01-05] MEDS: cefTRIAXone 1GM/50ML D5W 50 ML IV SCH (10:39)
--- NOTE | 2025-01-05 13:19 | DVHPN2 ---
Reviewed: Care Plan, H&P, Labs, Medications, Previous Orders, Radiology Changes from previous H/P or p: No Changes Eyes: No Pain, No Vision change, No Conjunctivae inflammation, No Eyelid inflammation, No Other, No Redness ENT: No Ear pain, No Ear discharge, No Nose pain, No Nose discharge, No Nose congestion, No Mouth pain, No Mouth swelling, No Throat pain, No Throat swelling, No Other Cardiovascular: No Chest Pain, No Palpitations, No Orthopnea, No Paroxysmal Noc. Dyspnea, No Edema, No Lt Headedness, No Other Respiratory: No Cough, No Dry, No Shortness of breath, No SOB with excertion, No Wheezing, No Hemoptysis, No Pleuritic Pain, No Sputum, No Other Gastrointestinal: Nausea; No Vomiting; Abdominal Pain; No Diarrhea, No Constipation, No Melena, No Hematochezia, No Other Genitourinary: No Dysuria, No Frequency, No Incontinence, No Hematuria, No Retention, No Other Musculoskeletal: No other, No neck pain, No shoulder pain, No arm pain, No back pain, No hand pain, No leg pain, No foot pain Skin: No Rash, No Lesions, No Jaundice, No Bruising, No Other Objective Vitals Vital Signs Date Time Temp Pulse Resp B/P (MAP) Pulse Ox O2 Delivery O2 Flow Rate FiO2 01/05/25 08:42 98.1 73 18 140/74 (96) 97 98.1 01/05/25 08:30 Room Air* 0 21 Intake/Output Intake and Output 01/05/25 07:00 Intake Total 1865 ml Balance 1865 ml Intake Oral 1865 ml # Voids 8 Medications Current Medications Medications Dose Ordered Sig/Yary Route Start Time Stop Time Status Last Admin Dose Admin Sodium Chloride 1,000 ml @ 60 mls/hr [id number] IV 01/03/25 14:30 01/05/25 00:15 60 MLS/HR Acetaminophen/ Hydrocodone Bitart 1 tab Q4HP PRN PO 01/03/25 14:30 Ondansetron HCl 4 mg Q4HP PRN IV 01/03/25 14:30 Docusate Sodium 100 mg BIDPRN PRN PO 01/03/25 14:30 Morphine Sulfate 2 mg Q4HPRN PRN IV 01/03/25 14:30 01/05/25 04:53 2 MG Pantoprazole Sodium 40 mg DAILY IV 01/04/25 10:00 01/05/25 10:39 40 MG Nitroglycerin 0.4 mg Q5MINP PRN SL 01/03/25 16:00 Morphine Sulfate 2 mg Q30M PRN IV 01/03/25 16:00 Ceftriaxone Sodium 50 ml @ 100 mls/hr DAILY@09 IV 01/05/25 09:00 01/05/25 10:39 100 MLS/HR Laboratory Results Laboratory Tests 01/05/25 05:48 Chemistry Test 01/04/25 18:51 01/05/25 05:48 Albumin 3.9 g/dL (3.2-4.8) 3.7 g/dL (3.2-4.8) Total Protein 6.3 g/dL (5.7-8.2) 6.3 g/dL (5.7-8.2) Calcium Level 8.9 mg/dL (8.7-10.4) Coagulation Test 01/05/25 05:48 Prothrombin Time 12.4 sec (9.3-11.8) H Prothrombin Time INR 1.19 (0.9-1.15) H LFT Test 01/04/25 18:51 01/05/25 05:48 Alanine Aminotransferase (ALT) 1772 U/L (7-40) H 1155 U/L (7-40) H Alkaline Phosphatase 273 U/L (46-116) H 305 U/L (46-116) H Aspartate Amino Transferase (AST) 1498 U/L (13-40) H 455 U/L (13-40) H Direct Bilirubin 1.2 mg/dL (<0.3) H Total Bilirubin 2.2 mg/dL (0.2-1.0) H 1.1 mg/dL (0.2-1.0) H Urinalysis Test 01/03/25 06:50 Urine Color Light-yellow (Yellow) Urine Clarity Clear (Clear) Urine pH 6.0 (5.0-9.0) Urine Specific [place] 1.021 (1.001-1.035) Urine Protein Negative (Negative) Urine Ketones Negative (Negative) Urine Blood Negative /uL (Negative) Urine Nitrite Negative (Negative) Urine Bilirubin Negative (Negative) Urine Urobilinogen Normal mg/dL (Negative) Urine Leukocyte Esterase Negative /uL (Negative) Urine RBC 1 /hpf (0 - 4) Urine Microscopic WBC 2 /HPF (0-5) Urine Squamous Epithelial Cells Few /hpf (<5) Urine Bacteria None seen /hpf (None Seen) Urine Mucus Few (None Seen) Urine Glucose Normal mg/dL (Normal) Labs and/or images reviewed: Labs reviewed by me, Image(s) reviewed by me Assessment/Plan Assessment/Plan Nonspecific abdominal pain 3.7 cm left Ovarian cyst, consult for OBGYN Dr. Zhao Uterine fibroids History of Cholecystectomy Elevated liver enzymes getting worse: GI consult by Dr. Michaelle Souza appreciated, hepatitis panel pending, MRCP ordered Plan discussed with: Patient My Orders Orders - EMILY LY MD Procedure Category Date Status Time * Senior [employer] Consultation CONS 01/04/25 Transmitted 14:58 * Gi D[facility] Director Patient Financial Services CONS 01/04/25 Transmitted 15:03 Npo (Nothing By DIET 01/04/25 Transmitted Mouth) Diet Dinner Mrcp Mri MRI 01/05/25 Logged 13:14 Date of Service: Jan 05, 2025 Billing Provider: EMILY LY MD Common Visit Codes: [id number] INP/OBS CARE(HIGH) EMILY LY MD Jan 05, 2025 13:19
[2025-01-05 13:25] VITALS: BP 147/84; PULSE 71; RESP 19; TEMP 98.2; O2SAT 97
--- NOTE | 2025-01-05 14:07 | DVH ---
MRCP WITHOUT CONTRAST CLINICAL HISTORY: Elevated liver function tests TECHNIQUE: Multiplanar, multisequence MRCP and MR images of the abdomen without contrast. 3D MRCP was performed using maximum intensity projection reconstruction on an independent workstation under concurrent supervision. Comparison: CT abdomen 01/03/2025. FINDINGS: The gallbladder is surgically absent. There is no significant intrahepatic biliary ductal dilatation. The common duct measures 7 mm. There is smooth tapering of the distal common duct at the level of the ampulla. There is no obvious obstructing lesion, intraluminal filling defect or obvious stricture . There is no pancreatic ductal dilatation. The liver, spleen, pancreas, kidneys, adrenal glands appear within normal limits. There is no free f luid or free air. The visualized small and large bowel loops demonstrate normal caliber. Lung bases a re clear. The osseous structures and soft tissues appear within normal limits IMPRESSION: 1. Postsurgical changes related to cholecystectomy. There is no significant biliary ductal dilatation .
--- NOTE | 2025-01-05 14:58 | DVHPN2 ---
Progress Note Date Seen: Jan 05, 2025 Resident Creating Document: VINNIE VAZQUEZ RESIDENT Medical Necessity Reason Pt with a Central, PICC or Fol: No Subjective Review of Systems 49 year old female presents to the ED with a chief complaint of LLQ pain onset last night. Patient states she began experiencing LLQ pain last night, rates pain 10/10 and pain worsens with walking. Patient states she has been experiencing LLQ pain intermittently for the past few months, worse for the last two three days. Denies PMHx as well as nausea, vomiting, diarrhea, headache, chest pain, shortness of breath. No other symptoms or modifying factors present at this time. Patient does see a Thai-speaking physician on his. Patient also noted some change in the color of her urine Abdominal pelvic CT scan showed uterine fibroid and a left ovarian cyst otherwise no acute abdominal process Laboratory tests this morning significant for moderate elevation in her transaminases and her liver enzymes, UA was negative Patient seen and examined at the bedside. Abdomen is soft and nontender. Objective vital signs Vital Sign Date Time Temp Pulse Resp B/P (MAP) Pulse Ox O2 Delivery O2 Flow Rate FiO2 01/05/25 13:25 98.2 71 19 147/84 (105) 97 98.2 01/05/25 08:30 Room Air* 0 21 Total Intake and Output 01/04/25 01/04/25 01/05/25 15:00 23:00 07:00 Intake Total 1490 ml 375 ml Balance 1490 ml 375 ml medications Current Medications Medications Dose Ordered Sig/Yary Route Start Time Stop Time Status Last Admin Dose Admin Sodium Chloride 1,000 ml @ 60 mls/hr [id number] IV 01/03/25 14:30 01/05/25 00:15 60 MLS/HR Acetaminophen/ Hydrocodone Bitart 1 tab Q4HP PRN PO 01/03/25 14:30 Ondansetron HCl 4 mg Q4HP PRN IV 01/03/25 14:30 Docusate Sodium 100 mg BIDPRN PRN PO 01/03/25 14:30 Morphine Sulfate 2 mg Q4HPRN PRN IV 01/03/25 14:30 01/05/25 04:53 2 MG Pantoprazole Sodium 40 mg DAILY IV 01/04/25 10:00 01/05/25 10:39 40 MG Nitroglycerin 0.4 mg Q5MINP PRN SL 2/3/25 16:00 Morphine Sulfate 2 mg Q30M PRN IV 01/03/25 16:00 Ceftriaxone Sodium 50 ml @ 100 mls/hr DAILY@09 IV 01/05/25 09:00 01/05/25 10:39 100 MLS/HR Examination General Appearance: Alert, Oriented X3, Cooperative, No acute distress; minimal scleral icterus HEENT: Atraumatic, PERRLA, EOMI, Mucous membr. moist/pink Respiratory: Clear to auscultation, Normal air movement Cardiovascular: Regular rate, Normal S1, Normal S2, No murmurs Abdominal: Normal bowel sounds, Soft, No hepatospenomegaly, No masses, left lower quadrant tenderness and suprapubic tenderness with guarding but no rebound Extremities: No clubbing, No cyanosis, No edema, Normal pulses, No tenderness/swelling Skin: No rashes, No breakdown, No significant lesion Neuro: Normal gait, Normal speech, Strength at 5/5 X4 ext, Normal tone, Sensation intact, Cranial nerves 3-12 NL, Reflexes 2+ Psych/Mental Status: Mental status NL, Mood NL laboratory and microbiology Laboratory Tests 01/05/25 05:48 Test 01/05/25 05:48 Range/Units Serum Glucose 98 74-106 mg/dL Labs and/or images reviewed: Labs reviewed by me, Image(s) reviewed by me Problem List/Assessment/Plan Problem List/Assessment/Plan Transaminitis Hyperbilirubinemia Left lower quadrant pain likely secondary to Uterine fibroids Anemia likely microcytic Hepatic steatosis History of cholecystectomy MRCP unremarkable Plan Normal acetaminophen level, downtrending LFTs. Possible colonoscopy 01/07. Follow up with hepatitis panel and DARRYL, iron panel, ferritin, HSV IgM and EBV IgM Patient is currently being managed conservatively, her UA is negative and CT is negative except for uterine fibroids and cyst Elective colonoscopy has been advised once medically stabilized Patient is awaiting OBGYN consult Plan discussed with patient in which all questions have been answered Case discussed with Dr. Souza. Plan discussed with: Patient VINNIE VAZQUEZ RESIDENT Jan 05, 2025 14:58
[2025-01-05 16:50] VITALS: BP 158/90; PULSE 68; RESP 17; TEMP 98.4; O2SAT 96
[2025-01-05 17:13] LABS: % Iron Saturation 23.1 % (15-50)
[2025-01-05] MEDS ORDERED: cloNIDine HCL 0.1 MG TAB PO PRN (17:15)
[2025-01-05] MEDS: SODIUM CHLORIDE 0.9% 1,000 ML IV SCH (17:34)
--- NOTE | 2025-01-05 20:48 | DVHINCON2 ---
REASON FOR CONSULTATION: Ovarian cyst. HISTORY OF PRESENT ILLNESS: The patient is a 49-year-old 2, para 2 with last menstrual period on 12/25/2024, admitted for acute abdominal pain. The patient reports some left lower quadrant pain. She has a 3.7 cm left ovarian cyst as well as fibroid uterus. She reports having normal menses. She does not have any abnormal uterine bleeding. Her last Pap was a year ago. Her CT scan reveals 3.7 cm left ovarian cyst. The patient underwent GI workup. PAST MEDICAL HISTORY: None. PAST SURGICAL HISTORY: Tubal ligation. SOCIAL HISTORY: None. FAMILY HISTORY: Unremarkable. REVIEW OF SYSTEMS: CONSTITUTIONAL: No fever, chills or weakness. RESPIRATORY: No cough dryness. No shortness of breath. CARDIOVASCULAR: No chest pain or palpitation. GASTROINTESTINAL: Some nausea and abdominal pain. MUSCULOSKELETAL: No neck pain or shoulder pain. NEUROLOGICAL: No weakness or numbness. ALLERGIES: No known drug allergies. PHYSICAL EXAMINATION: VITAL SIGNS: Stable, afebrile. HEENT: Within normal limits. CARDIOVASCULAR: Regular rate and rhythm. LUNGS: Clear to auscultation. BREASTS: Symmetrical. No masses. ABDOMEN: Soft, nontender. PELVIC: External genitalia within normal limits. Vagina normal. Cervix grossly normal. Uterus 8 weeks' size. Adnexa nonpalpable. EXTREMITIES: No clubbing, cyanosis or edema. IMPRESSION: * Abdominal pain. * Left ovarian cyst, doubt this would be the source for pain. * Fibroid uterus. RECOMMENDATION: Supportive care. Followup on an outpatient basis. The patient will need Pap. The patient does not need any surgical intervention. DO ANGEL Hernandez/ABELARDO TID: [id number] RECEIPT: [id number]
[2025-01-05 21:00] VITALS: BP 158/97; PULSE 77; RESP 20; TEMP 98.4; O2SAT 97
[2025-01-06] VITALS (7 sets, daily range): BP systolic 141–158; BP diastolic 77–109; PULSE 79–104; RESP 16–18; TEMP 98–98.7; O2SAT 94–97
[2025-01-06 09:20] LABS: Hepatitis B Core Total AB Negative (Negative)
[2025-01-06 10:36] LABS: Hepatitis A Ab IgM Negative; Hepatitis A Total Antibody Positive (Negative); Hepatitis B Core IgM Negative (Negative); Hepatitis B Surface Antibody Negative (Negative); Hepatitis B Surface Antigen Negative (Negative); Hepatitis C Antibody Negative (Negative)
--- NOTE | 2025-01-06 11:34 | DVHPN2 ---
Reviewed: Care Plan, H&P, Labs, Medications, Previous Orders, Radiology Changes from previous H/P or p: No Changes Eyes: No Pain, No Vision change, No Conjunctivae inflammation, No Eyelid inflammation, No Other, No Redness ENT: No Ear pain, No Ear discharge, No Nose pain, No Nose discharge, No Nose congestion, No Mouth pain, No Mouth swelling, No Throat pain, No Throat swelling, No Other Cardiovascular: No Chest Pain, No Palpitations, No Orthopnea, No Paroxysmal Noc. Dyspnea, No Edema, No Lt Headedness, No Other Respiratory: No Cough, No Dry, No Shortness of breath, No SOB with excertion, No Wheezing, No Hemoptysis, No Pleuritic Pain, No Sputum, No Other Gastrointestinal: Nausea; No Vomiting; Abdominal Pain; No Diarrhea, No Constipation, No Melena, No Hematochezia, No Other Genitourinary: No Dysuria, No Frequency, No Incontinence, No Hematuria, No Retention, No Other Musculoskeletal: No other, No neck pain, No shoulder pain, No arm pain, No back pain, No hand pain, No leg pain, No foot pain Skin: No Rash, No Lesions, No Jaundice, No Bruising, No Other Objective Vitals Vital Signs Date Time Temp Pulse Resp B/P (MAP) Pulse Ox O2 Delivery O2 Flow Rate FiO2 01/06/25 09:00 98.7 79 18 158/87 (110) 94 98.7 01/05/25 20:30 Room Air* 0 21 Intake/Output Intake and Output 01/06/25 07:00 Intake Total 0 ml Balance 0 ml Intake Oral 0 ml # Voids 5 Medications Current Medications Medications Dose Ordered Sig/Yary Route Start Time Stop Time Status Last Admin Dose Admin Acetaminophen/ Hydrocodone Bitart 1 tab Q4HP PRN PO 01/03/25 14:30 Ondansetron HCl 4 mg Q4HP PRN IV 01/03/25 14:30 Docusate Sodium 100 mg BIDPRN PRN PO 01/03/25 14:30 Morphine Sulfate 2 mg Q4HPRN PRN IV 01/03/25 14:30 01/05/25 04:53 2 MG Pantoprazole Sodium 40 mg DAILY IV 01/04/25 10:00 01/05/25 10:39 40 MG Nitroglycerin 0.4 mg Q5MINP PRN SL 01/03/25 16:00 Morphine Sulfate 2 mg Q30M PRN IV 01/03/25 16:00 Ceftriaxone Sodium 50 ml @ 100 mls/hr DAILY@09 IV 01/05/25 09:00 01/05/25 10:39 100 MLS/HR Sodium Chloride 1,000 ml @ 125 mls/hr Q8H IV 01/05/25 17:15 01/06/25 01:15 125 MLS/HR Clonidine HCl 0.2 mg Q6HP PRN PO 01/05/25 17:15 Laboratory Results Laboratory Tests 01/05/25 05:48 Urinalysis Test 01/03/25 06:50 Urine Color Light-yellow (Yellow) Urine Clarity Clear (Clear) Urine pH 6.0 (5.0-9.0) Urine Specific [place] 1.021 (1.001-1.035) Urine Protein Negative (Negative) Urine Ketones Negative (Negative) Urine Blood Negative /uL (Negative) Urine Nitrite Negative (Negative) Urine Bilirubin Negative (Negative) Urine Urobilinogen Normal mg/dL (Negative) Urine Leukocyte Esterase Negative /uL (Negative) Urine RBC 1 /hpf (0 - 4) Urine Microscopic WBC 2 /HPF (0-5) Urine Squamous Epithelial Cells Few /hpf (<5) Urine Bacteria None seen /hpf (None Seen) Urine Mucus Few (None Seen) Urine Glucose Normal mg/dL (Normal) Labs and/or images reviewed: Labs reviewed by me, Image(s) reviewed by me Assessment/Plan Assessment/Plan Nonspecific abdominal pain 3.7 cm left Ovarian cyst, consult for OBGYN Dr. Zhao appreciated, advised patient's pain is not from the ovarian cyst and advised outpatient follow up Uterine fibroids History of Cholecystectomy Elevated liver enzymes improving, MRCP negative for any acute pathology, hepatitis panel negative GI Dr. Michaelle Souza planning for colonoscopy tomorrow. Plan discussed with: Patient My Orders Orders - EMILY LY MD Procedure Category Date Status Time Mrcp Mri MRI 01/05/25 Resulted 13:14 Blood Culture AVELINA 01/05/25 In Process 17:06 Sodium Chloride 0.9% PHA 01/05/25 In Process 17:15 Clonidine Hcl Tablet PHA 01/05/25 In Process (Catapres Tablet) 17:15 Date of Service: Jan 06, 2025 Billing Provider: EMILY LY MD Common Visit Codes: [id number] INP/OBS CARE(HIGH) EMILY LY MD Jan 06, 2025 11:34
[2025-01-06] MEDS: GOLYTELY 4L KIT PO ONE (11:35)
[2025-01-06 12:06] LABS: Anti-Nuclear Antibody Direct Negative (Negative)
--- NOTE | 2025-01-06 12:15 | DVHPNRES ---
Progress Note Date Seen: Jan 06, 2025 Resident Creating Document: VINNIE VAZQUEZ RESIDENT Medical Necessity Reason Pt with a Central, PICC or Fol: No Subjective Review of Systems 49 year old female presents to the ED with a chief complaint of LLQ pain onset last night. Patient states she began experiencing LLQ pain last night, rates pain 10/10 and pain worsens with walking. Patient states she has been experiencing LLQ pain intermittently for the past few months, worse for the last two three days. Denies PMHx as well as nausea, vomiting, diarrhea, headache, chest pain, shortness of breath. No other symptoms or modifying factors present at this time. Patient does see a [place]-speaking physician on his. Patient also noted some change in the color of her urine Abdominal pelvic CT scan showed uterine fibroid and a left ovarian cyst otherwise no acute abdominal process Laboratory tests this morning significant for moderate elevation in her transaminases and her liver enzymes, UA was negative Patient seen and examined at the bedside. Abdomen is soft and nontender. Objective vital signs Vital Sign Date Time Temp Pulse Resp B/P (MAP) Pulse Ox O2 Delivery O2 Flow Rate FiO2 01/06/25 09:00 98.7 79 18 158/87 (110) 94 98.7 01/05/25 20:30 Room Air* 0 21 Total Intake and Output 01/05/25 01/05/25 01/06/25 15:00 23:00 07:00 Intake Total 0 ml 0 ml Balance 0 ml 0 ml medications Current Medications Medications Dose Ordered Sig/Yary Route Start Time Stop Time Status Last Admin Dose Admin Acetaminophen/ Hydrocodone Bitart 1 tab Q4HP PRN PO 01/03/25 14:30 Ondansetron HCl 4 mg Q4HP PRN IV 01/03/25 14:30 Docusate Sodium 100 mg BIDPRN PRN PO 01/03/25 14:30 Morphine Sulfate 2 mg Q4HPRN PRN IV 01/03/25 14:30 01/05/25 04:53 2 MG Pantoprazole Sodium 40 mg DAILY IV 01/04/25 10:00 01/06/25 11:22 40 MG Nitroglycerin 0.4 mg Q5MINP PRN SL 01/03/25 16:00 Morphine Sulfate 2 mg Q30M PRN IV 01/03/25 16:00 Ceftriaxone Sodium 50 ml @ 100 mls/hr DAILY@09 IV 01/05/25 09:00 01/06/25 11:36 100 MLS/HR Sodium Chloride 1,000 ml @ 125 mls/hr Q8H IV 01/05/25 17:15 01/06/25 11:35 125 MLS/HR Clonidine HCl 0.2 mg Q6HP PRN PO 01/05/25 17:15 Examination General Appearance: Alert, Oriented X3, Cooperative, No acute distress; minimal scleral icterus HEENT: Atraumatic, PERRLA, EOMI, Mucous membr. moist/pink Respiratory: Clear to auscultation, Normal air movement Cardiovascular: Regular rate, Normal S1, Normal S2, No murmurs Abdominal: Normal bowel sounds, Soft, No hepatospenomegaly, No masses, left lower quadrant tenderness and suprapubic tenderness with guarding but no rebound Extremities: No clubbing, No cyanosis, No edema, Normal pulses, No tenderness/swelling Skin: No rashes, No breakdown, No significant lesion Neuro: Normal gait, Normal speech, Strength at 5/5 X4 ext, Normal tone, Sensation intact, Cranial nerves 3-12 NL, Reflexes 2+ Psych/Mental Status: Mental status NL, Mood NL laboratory and microbiology Laboratory Tests 01/05/25 05:48 Test 01/05/25 05:48 Range/Units Serum Glucose 98 74-106 mg/dL Labs and/or images reviewed: Labs reviewed by me, Image(s) reviewed by me Problem List/Assessment/Plan Problem List/Assessment/Plan Transaminitis ? Autoimmune hepatitis Hyperbilirubinemia - mixed Left lower quadrant pain likely secondary to Uterine fibroids Anemia likely microcytic Hepatic steatosis History of cholecystectomy MRCP unremarkable Plan Patient will be scheduled for colonoscopy 01/07. Continue bowel prep. Clear liquid diet for now. Normal acetaminophen level, downtrending LFTs. DARRYL , Hepatitis panel negative Follow up with HSV IgM and EBV IgM Follow up with AMA antibodies, anti-smooth muscle antibodies Patient is currently being managed conservatively, her UA is negative and CT is negative except for uterine fibroids and cyst Elective colonoscopy has been advised once medically stabilized Patient is awaiting OBGYN consult Plan discussed with patient in which all questions have been answered Case discussed with Dr. Souza. Plan discussed with: Patient My Orders My Orders Orders - VINNIE VAZQUEZ RESIDENT Procedure Category Date Status Time Ebv Acute Infection LAB 01/05/25 In Process Antibodies 14:56 Anca Panel LAB 01/05/25 In Process 17:49 VINNIE VAZQUEZ RESIDENT Jan 06, 2025 12:15
[2025-01-07] VITALS (9 sets, daily range): BP systolic 133–150; BP diastolic 62–98; PULSE 74–94; RESP 15–19; TEMP 98.2–98.6; O2SAT 94–98
[2025-01-07] MEDS ORDERED: hydrALAZINE HCL 20 MG/ML VL IV PRN
[2025-01-07] MEDS ORDERED: MORPHINE SULFATE INJ 2 MG/ml SYRG IV PRN
[2025-01-07] MEDS: MAGNESIUM CITRATE SOLUTION 300 ML BTL PO ONE (06:08)
--- NOTE | 2025-01-07 06:08 | DVH ---
CHEST RADIOGRAPH Indication: Procedure. Technique: Single frontal view of the chest was obtained Comparison: None FINDINGS: Lines and Tubes: None Lungs: No focal consolidation. Pleura: No effusion. No pneumothorax. Cardiomediastinal contours: Unremarkable Bones: No acute osseous abnormality. IMPRESSION: 1. No acute cardiopulmonary disease.
[2025-01-07] MEDS: GOLYTELY 4L KIT PO ONE (06:10)
[2025-01-07 08:06] LABS: EBV Ab VCA IgM Antibody <36.0 U/mL (0.0-35.9); EBV Early Antigen IgG Antibody >600.0 U/mL (0.0-17.9)
--- NOTE | 2025-01-07 10:30 | DVHPN2 ---
Reviewed: Care Plan, H&P, Labs, Medications, Previous Orders, Radiology Changes from previous H/P or p: No Changes Eyes: No Pain, No Vision change, No Conjunctivae inflammation, No Eyelid inflammation, No Other, No Redness ENT: No Ear pain, No Ear discharge, No Nose pain, No Nose discharge, No Nose congestion, No Mouth pain, No Mouth swelling, No Throat pain, No Throat swelling, No Other Cardiovascular: No Chest Pain, No Palpitations, No Orthopnea, No Paroxysmal Noc. Dyspnea, No Edema, No Lt Headedness, No Other Respiratory: No Cough, No Dry, No Shortness of breath, No SOB with excertion, No Wheezing, No Hemoptysis, No Pleuritic Pain, No Sputum, No Other Gastrointestinal: Nausea; No Vomiting; Abdominal Pain; No Diarrhea, No Constipation, No Melena, No Hematochezia, No Other Genitourinary: No Dysuria, No Frequency, No Incontinence, No Hematuria, No Retention, No Other Musculoskeletal: No other, No neck pain, No shoulder pain, No arm pain, No back pain, No hand pain, No leg pain, No foot pain Skin: No Rash, No Lesions, No Jaundice, No Bruising, No Other Objective Vitals Vital Signs Date Time Temp Pulse Resp B/P (MAP) Pulse Ox O2 Delivery O2 Flow Rate FiO2 01/07/25 09:00 98.6 80 18 141/87 (105) 96 98.6 01/06/25 20:00 Room Air* 0 21 Intake/Output Intake and Output 01/07/25 07:00 Intake Total 2100 ml Balance 2100 ml Intake Oral 2050 ml IV Total 50 ml # Voids 5 # Bowel Movements 7 Medications Current Medications Medications Dose Ordered Sig/Yary Route Start Time Stop Time Status Last Admin Dose Admin Acetaminophen/ Hydrocodone Bitart 1 tab Q4HP PRN PO 01/03/25 14:30 Ondansetron HCl 4 mg Q4HP PRN IV 01/03/25 14:30 Docusate Sodium 100 mg BIDPRN PRN PO 01/03/25 14:30 Morphine Sulfate 2 mg Q4HPRN PRN IV 01/03/25 14:30 01/07/25 06:17 2 MG Pantoprazole Sodium 40 mg DAILY IV 01/04/25 10:00 01/07/25 09:21 40 MG Nitroglycerin 0.4 mg Q5MINP PRN SL 01/03/25 16:00 Morphine Sulfate 2 mg Q30M PRN IV 01/03/25 16:00 Ceftriaxone Sodium 50 ml @ 100 mls/hr DAILY@09 IV 01/05/25 09:00 01/07/25 09:21 100 MLS/HR Sodium Chloride 1,000 ml @ 125 mls/hr Q8H IV 01/05/25 17:15 01/07/25 04:40 125 MLS/HR Clonidine HCl 0.2 mg Q6HP PRN PO 01/05/25 17:15 Hydralazine HCl 10 mg Q6HP PRN IV 01/07/25 00:00 Laboratory Results Laboratory Tests 01/05/25 05:48 Urinalysis Test 01/03/25 06:50 Urine Color Light-yellow (Yellow) Urine Clarity Clear (Clear) Urine pH 6.0 (5.0-9.0) Urine Specific [place] 1.021 (1.001-1.035) Urine Protein Negative (Negative) Urine Ketones Negative (Negative) Urine Blood Negative /uL (Negative) Urine Nitrite Negative (Negative) Urine Bilirubin Negative (Negative) Urine Urobilinogen Normal mg/dL (Negative) Urine Leukocyte Esterase Negative /uL (Negative) Urine RBC 1 /hpf (0 - 4) Urine Microscopic WBC 2 /HPF (0-5) Urine Squamous Epithelial Cells Few /hpf (<5) Urine Bacteria None seen /hpf (None Seen) Urine Mucus Few (None Seen) Urine Glucose Normal mg/dL (Normal) Microbiology Microbiology Date/Time Source Procedure Growth Status 01/05/25 17:42 Blood Blood Culture - Preliminary NO GROWTH AFTER 24 HOURS OF INCUBATION. Resulted Labs and/or images reviewed: Labs reviewed by me, Image(s) reviewed by me Assessment/Plan Assessment/Plan Nonspecific abdominal pain 3.7 cm left Ovarian cyst, consult for OBGYN Dr. Zhao appreciated, advised patient's pain is not from the ovarian cyst and advised outpatient follow up Uterine fibroids History of Cholecystectomy Elevated liver enzymes improving, MRCP negative for any acute pathology, hepatitis panel negative GI Dr. Michaelle Souza planning for colonoscopy today Plan discussed with: Patient Date of Service: Jan 07, 2025 Billing Provider: EMILY LY MD Common Visit Codes: [id number] INP/OBS CARE(HIGH) EMILY LY MD Jan 07, 2025 10:30
[2025-01-07] MEDS ORDERED: SODIUM CHLORIDE LOCK 10 ML ONE (12:56)
[2025-01-07] MEDS: diphenhdrAMINE HCL 50 MG/1 ML VL ONE (13:49)
[2025-01-07] MEDS: fentaNYL CITRATE 100 MCG/2 ML VL ONE (13:49)
[2025-01-07] MEDS: MIDAZOLAM HCL 5 MG/ML-1ML VIAL ONE (13:49)
--- NOTE | 2025-01-07 14:06 | DVHOP2 ---
Operative Report DATE OF OPERATION: 01/07/25 PROCEDURE: Diagnostic Colonoscopy. PREOPERATIVE INDICATION: The patient is a 49 -year-old female undergoing colonoscopy for left lower quadrant POSTOPERATIVE DIAGNOSES: 1. Trace internal hemorrhoids otherwise completely normal colonoscopy examination up to the terminal ileum PROCEDURE PERFORMED BY: Giulia Souza M.D. SCOPE: Olympus videocolonoscope. ASA CLASS: 2. PREOPERATIVE MEDICATIONS: Versed 4 mg, Fentanyl 100 mcg, Benadryl 50 mg PROCEDURE IN DETAIL: After obtaining an informed consent, the patient was placed on left lateral decubitus position. She was then sedated with the above medications. A rectal examination was performed that was normal. The colonoscope was then passed through the anus into the rectosigmoid and through the descending, transverse, and ascending colon up to the cecum with visualization of the appendiceal orifice, base of the cecum and the ileocecal valve. The colonoscope was then withdrawn. The distal 5-10 cm of the terminal ileum were normal No polyps or masses were seen. There was no colitis. No sigmoiditis. There was no clear-cut diverticular disease. On retroflexion she had trace internal hemorrhoids. The patient tolerated the procedure well without difficulty. WITHDRAWAL TIME: 6 minutes QUALITY OF THE PREP: [place] Bowel Prep score: 9. COMPLICATIONS : None SPECIMENS: None DISPOSITION: Transfer back to the floor Stable PLAN: 1. Repeat colonoscopy in 10 years 2. Resume GI soft diet 3. Outpatient follow up with GI Services to follow up her liver blood tests GIULIA SOUZA MD Jan 07, 2025 14:06
[2025-01-07 14:47] LABS: Basophils # (auto) 0 10 ^3/uL (0-0.2); Basophils % (auto) 0.5 % (0.0-2.0); Eosinophils # (auto) 0.2 10 ^3/uL (0-0.8); Eosinophils % (auto) 2.6 % (0.0-7.0); Hematocrit 34.4 % (36.0-46.0); Hemoglobin 11.3 g/dL (12.2-16.2); Lymphocytes # (auto) 1.3 10 ^3/uL (0.4-5.4); Lymphocytes % (auto) 17.1 % (10.0-50.0); Mean Corpuscular Hemoglobin 25.4 pg (28.0-32.0); Mean Corpuscular Hgb Conc. 32.9 g/dL (32.0-36.0); Mean Corpuscular Volume 77.2 fL (80.0-100.0); Monocytes # (auto) 0.5 10 ^3/uL (0-1.3); Monocytes % (auto) 7.1 % (0.0-12.0); Neutrophils # (auto) 5.6 10 ^3/uL (1.6-8.6); Neutrophils % (auto) 72.7 % (37.0-80.0); Platelet Count (auto) 228 10^3/uL (140-450); Red Blood Cells 4.46 10^6/uL (4.0-5.20); Red Cell Distribution Width 16.6 % (11.8-14.3); White Blood Cell 7.7 10^3/uL (4.4-10.8)
[2025-01-07 15:06] LABS: Albumin 3.9 g/dL (3.2-4.8); Anion Gap 10 (5-15); BUN/Creatinine Ratio 12.1 (10.0-20.0); Carbon Dioxide 21 mmol/L (20-31); Glucose 93 mg/dL (74-106); Potassium 3.6 mmol/L (3.5-5.1); Sodium 140 mmol/L (136-145)
[2025-01-07 15:07] LABS: Bilirubin, Total 0.5 mg/dL (0.2-1.0); Total Protein 6.2 g/dL (5.7-8.2)
[2025-01-07 15:10] LABS: Alanine Aminotransferase 557 U/L (7-40); Alkaline Phosphatase 238 U/L (46-116); Aspartate Aminotransferase 101 U/L (13-40); Blood Urea Nitrogen 7 mg/dL (9-23); Calcium 8.5 mg/dL (8.7-10.4); Chloride 109 mmol/L (98-107)
[2025-01-08 01:00] VITALS: BP 126/75; PULSE 105; RESP 18; TEMP 98.2; O2SAT 94
[2025-01-08 05:00] VITALS: BP 123/70; PULSE 82; RESP 18; TEMP 98.4; O2SAT 97
[2025-01-08 09:00] VITALS: BP 142/86; PULSE 77; RESP 18; TEMP 98.9; O2SAT 97
--- NOTE | 2025-01-08 11:08 | DVHDS2 ---
Discharge Summary Date of Admission Jan 03, 2025 at 15:58 Date of Discharge: Jan 08, 2025 Admitting Diagnosis Abdominal pain Wounds: Colonoscopy Labs/Diagnostic Data: Laboratory Results Test 01/07/25 14:23 01/05/25 17:42 01/05/25 05:48 01/04/25 18:51 White Blood Count 7.7 10^3/uL (4.4-10.8) Red Blood Count 4.46 10^6/uL (4.0-5.20) Hemoglobin 11.3 g/dL (12.2-16.2) Hematocrit 34.4 % (36.0-46.0) Mean Corpuscular Volume 77.2 fL (80.0-100.0) Mean Corpuscular Hemoglobin 25.4 pg (28.0-32.0) Mean Corpuscular Hemoglobin Concent 32.9 g/dL (32.0-36.0) Red Cell Distribution Width 16.6 % (11.8-14.3) Platelet Count 228 10^3/uL (140-450) Mean Platelet Volume 8.9 fL (6.9-10.8) Neutrophils (%) (Auto) 72.7 % (37.0-80.0) Lymphocytes (%) (Auto) 17.1 % (10.0-50.0) Monocytes (%) (Auto) 7.1 % (0.0-12.0) Eosinophils (%) (Auto) 2.6 % (0.0-7.0) Basophils (%) (Auto) 0.5 % (0.0-2.0) Neutrophils # (Auto) 5.6 10 ^3/uL (1.6-8.6) Lymphocytes # (Auto) 1.3 10 ^3/uL (0.4-5.4) Monocytes # (Auto) 0.5 10 ^3/uL (0-1.3) Eosinophils # (Auto) 0.2 10 ^3/uL (0-0.8) Basophils # (Auto) 0 10 ^3/uL (0-0.2) Nucleated Red Blood Cells 0.0 % Sodium Level 140 mmol/L (136-145) Potassium Level 3.6 mmol/L (3.5-5.1) Chloride Level 109 mmol/L (98-107) Carbon Dioxide Level 21 mmol/L (20-31) Anion Gap 10 (5-15) Blood Urea Nitrogen 7 mg/dL (9-23) Creatinine 0.58 mg/dL (0.550-1.02) Glomerular Filtration Rate Calc 112 mL/min (>90) BUN/Creatinine Ratio 12.1 (10.0-20.0) Serum Glucose 93 mg/dL (74-106) Calcium Level 8.5 mg/dL (8.7-10.4) Total Bilirubin 0.5 mg/dL (0.2-1.0) Aspartate Amino Transferase (AST) 101 U/L (13-40) Alanine Aminotransferase (ALT) 557 U/L (7-40) Alkaline Phosphatase 238 U/L (46-116) Total Protein 6.2 g/dL (5.7-8.2) Albumin 3.9 g/dL (3.2-4.8) Beta HCG, Quantitative 0.3 mIU/mL (1.5-4.2) [place] Virus Capsid Ag IgG Ab 118.0 U/mL (0.0-17.9) [place] Virus Capsid Ag IgM Ab <36.0 U/mL (0.0-35.9) [place] Early Antigen IgG Ab >600.0 U/mL (0.0-17.9) [place] Virus Ab Interpret Comment (.) Prothrombin Time 12.4 sec (9.3-11.8) Prothrombin Time INR 1.19 (0.9-1.15) Iron Level 77 ug/dL (50-170) Total Iron Binding Capacity 333 ug/dL (250-425) Percent Iron Saturation 23.1 % (15-50) Ferritin 25.6 ng/mL (10-291) Direct Bilirubin 1.2 mg/dL (<0.3) Test 01/04/25 18:36 01/04/25 05:21 01/03/25 06:50 Plasma/Serum Blood Alcohol < 3.0 mg/dL (<10) Anti-Nuclear Antibody Screen Negative (Negative) Creatine Kinase 179 U/L (34-145) Acetaminophen Level < 2.0 UG/ML (10.0-20.0) Hepatitis A IgM Antibody Negative Hepatitis A Antibody Total Positive (Negative) Hepatitis B Surface Antigen Negative (Negative) Hepatitis B Surface Antibody Negative (Negative) Hepatitis B Core Total Antibody Negative (Negative) Hepatitis B Core IgM Antibody Negative (Negative) Hepatitis C Antibody Negative (Negative) Urine Color Light-yellow (Yellow) Urine Clarity Clear (Clear) Urine pH 6.0 (5.0-9.0) Urine Specific [place] 1.021 (1.001-1.035) Urine Protein Negative (Negative) Urine Ketones Negative (Negative) Urine Blood Negative /uL (Negative) Urine Nitrite Negative (Negative) Urine Bilirubin Negative (Negative) Urine Urobilinogen Normal mg/dL (Negative) Urine Leukocyte Esterase Negative /uL (Negative) Urine RBC 1 /hpf (0 - 4) Urine Microscopic WBC 2 /HPF (0-5) Urine Squamous Epithelial Cells Few /hpf (<5) Urine Bacteria None seen /hpf (None Seen) Urine Mucus Few (None Seen) Urine Glucose Normal mg/dL (Normal) Other Laboratory Tests 01/07/25 14:23 Brief Hx & Hospital Course: Female came in for abdominal pain all labs were normal patient had 3.7 cm left ovarian cyst by CT abdomen pelvis without contrast seen by OBGYN Dr. Zhao. Advised outpatient follow up tie layer. Patient has a history of cholecystectomy. Liver enzymes were elevated and gradually came back to almost normal levels time discharge. MRCP negative for any acute pathology. Patient had colonoscopy found to have mild hemorrhoids GI consult by Dr. Michaelle Souza. Patient would like to be discharged home and discharged stable for discharge Consults/Reason for consult GI Dr. Michaelle Souza Operations or Procedures Colonoscopy Condition at Discharge: Fair Final Diagnosis/Problems List Nonspecific abdominal pain 3.7 cm left Ovarian cyst, consult for OBGYN Dr. Zhao appreciated, advised patient's pain is not from the ovarian cyst and advised outpatient follow up Uterine fibroids History of Cholecystectomy Hemorrhoids by colonoscopy Elevated liver enzymes improving, MRCP negative for any acute pathology, hepatitis panel negative Discharge Disposition: Home Discharge Instruct/Medications Diet: Regular Activity: Light activity Follow Up/Referral: Follow up with your tie layer for ovarian cyst Follow up with GI Dr. Michaelle Souza in two weeks Medications: None 35 (Time taken for discharge summary 35 minutes) Discharge Statement: "Patient was advised to return to the ER or call 911 if any headaches, dizziness, shortness of breath, chest pain, abdominal pain, bleeding, fevers, or worsening of medical condition. Patient was counseled about treatment plan, medications, possible side effects, patientverbalized understanding. All questions were answered to the best of my ability. This discharge took greater then 30 minutes in planning, reviewing documentation, counseling the patient, and discussing with other team members." ASSESSMENT ASSESSMENT Hospital Course Improved Assessment Nonspecific abdominal pain 3.7 cm left Ovarian cyst, consult for OBGYN Dr. Zhao appreciated, advised patient's pain is not from the ovarian cyst and advised outpatient follow up Uterine fibroids History of Cholecystectomy Hemorrhoids by colonoscopy Elevated liver enzymes improving, MRCP negative for any acute pathology, hepatitis panel negative Date of Service: Jan 08, 2025 Billing Provider: EMILY LY MD Common Visit Codes: [id number] DISCH DAY >30min EMILY LY MD Jan 08, 2025 11:08
[2025-01-08 11:43] VITALS: TEMP 37.2
[2025-01-08 13:00] VITALS: BP 124/78; PULSE 94; RESP 18; O2SAT 97
[2025-01-08 14:06] LABS: Cytoplasmic (C-ANCA) <1:20 titer (Neg:<1:20); Perinuclear (P-ANCA) <1:20 titer (Neg:<1:20)
[2025-01-09 17:06] LABS: Antimyeloperoxidase (MPO) Ab <0.2 units (0.0-0.9); Antiproteinase 3 (PR-3) Ab <0.2 units (0.0-0.9)
== END 2025-01-08 13:10 | disposition home or self-care (01) | DRG 254 ==
LOC: ER 06:37 → OVERFLOW 15:58 → WEST WING 15:59
PROVIDERS: ADMIT Nurse Practitioner Family; ATTEND Family Medicine
PROC: 0DJD8ZZ Inspection of Lower Intestinal Tract, Via Natural or Artificial Opening Endoscopic (ICD-10-PCS; principal; 2025-01-07 13:43)
DX: K64.8 Other hemorrhoids (principal); K76.0 Fatty (change of) liver, not elsewhere classified; D25.9 Leiomyoma of uterus, unspecified; N83.202 Unspecified ovarian cyst, left side; E80.6 Other disorders of bilirubin metabolism; D50.9 Iron deficiency anemia, unspecified; Z90.49 Acquired absence of other specified parts of digestive tract; Z79.899 Other long term (current) drug therapy
CPT/HCPCS: 36415; 45378; 71045; 74177; 74181; 76705; 80048; 80053; 80074; 80076; 80307; 80320; 80329; 81001; 82550; 82728; 83520; 83540; 83550; 84702; 85025; 85610; 86038; 86256; 86664; 86704; 86706; 86708; 86803; 86850; 86900; 86901; 87040; 87340; G0378; J2250; J2405; J2470

== ENCOUNTER → 2025-08-09 | Outpatient (CLI) | payer MEDICAID ==
[2025-08-09 09:40] LABS: Hematocrit 38.1 % (36.0-46.0); Hemoglobin 12.5 g/dL (12.2-16.2); Mean Corpuscular Hemoglobin 25.7 pg (28.0-32.0); Mean Corpuscular Volume 78.2 fL (80.0-100.0); Nucleated Red Blood Cells % 0.0 %
[2025-08-09 10:42] LABS: Iron 38.0 ug/dL (50-170)
[2025-08-09 10:45] LABS: Total Iron Binding Capacity 352.0 ug/dL (250-425)
[2025-08-09 12:15] LABS: Alanine Aminotransferase 34 U/L (7-40); Albumin 4.3 g/dL (3.2-4.8); Alkaline Phosphatase 90 U/L (46-116); Anion Gap 8 (5-15); BUN/Creatinine Ratio 16.9 (10.0-20.0); Bilirubin, Total 0.5 mg/dL (0.2-1.0); Blood Urea Nitrogen 12 mg/dL (9-23); Calcium 8.6 mg/dL (8.7-10.4); Carbon Dioxide 26 mmol/L (20-31); Chloride 104 mmol/L (98-107); Glucose 105 mg/dL (74-106); Potassium 4.1 mmol/L (3.5-5.1); Sodium 138 mmol/L (136-145); Total Protein 6.8 g/dL (5.7-8.2)
[2025-08-09 20:09] LABS: Triglycerides 118 mg/dL (< 150)
[2025-08-09 20:11] LABS: Cholesterol 170 mg/dL (< 200); HDL Cholesterol 52 mg/dL (40-59)
== END | disposition home or self-care (01) ==
LOC: LAB 09:15
PROVIDERS: ATTEND Licensed Practical Nurse
DX: I10 Essential (primary) hypertension (principal); E78.5 Hyperlipidemia, unspecified; D50.0 Iron deficiency anemia secondary to blood loss (chronic); R73.03 Prediabetes
CPT/HCPCS: 36415; 80053; 80061; 82043; 82728; 83036; 83540; 83550; 85025